=== PATIENT | female | born 1960 | race African-American/Black ===

== ENCOUNTER 2022-11-29 15:06 | Emergency (ER) | payer BC, MEDICARE, MEDICAID ==
[~2022-11-29] VITALS: Ht 162.6 cm; Wt 65.0 kg
[2022-11-29 15:14] VITALS: TEMP 98.2; O2SAT 98
[2022-11-29] MEDS ORDERED: IBUPROFEN 600MG TABLET PO ONE (15:30)
[2022-11-29] MEDS ORDERED: MELO-105 MT (16:40)
[2022-11-29] MEDS: IBUPROFEN 600MG TABLET PO NR ×2 (17:15→17:43)
[2022-11-29 17:43] VITALS: BP 135/88; PULSE 96; RESP 18
== END 2022-11-29 17:44 | disposition home or self-care (01) ==
LOC: ER 15:06
DX: M17.11 Unilateral primary osteoarthritis, right knee (principal); E11.9 Type 2 diabetes mellitus without complications
CPT/HCPCS: 73560; 73600; 99284; Z7610

== ENCOUNTER 2024-09-03 23:06 | Emergency (ER) | payer BC, MEDICAID ==
[~2024-09-03] VITALS: Ht 154.9 cm; Wt 64.0 kg
[~2024-09-03 23:06] MED LIST: MELO-105 MT
[2024-09-03 23:12] VITALS: TEMP 36.5; O2SAT 99
[2024-09-04 00:26] LABS: CARBON DIOXIDE 23 mEq/L (21-32); CHLORIDE 97 mEq/L (98-107); SODIUM 130 mEq/L (136-145)
[2024-09-04 00:28] LABS: CALCIUM 9.5 mg/dL (8.7-10.4); PROTHROMBIN TIME 10.6 sec (9.6-11.0)
[2024-09-04 00:29] LABS: BASOPHILS % 0.7 % (0.0-2.0); EOSINOPHILS % 2.2 % (0.0-5.0); HEMATOCRIT. 37.9 % (36.0-48.0); HEMOGLOBIN. 12.8 g/dL (12.0-16.0); LYMPHOCYTES % 55.5 % (20.0-50.0); MEAN CORPUSCULAR HEMOGLOBIN 30.9 pg (28.0-32.0); MEAN CORPUSCULAR HGB CONC 33.9 g/dL (31.0-37.0); MEAN CORPUSCULAR VOLUME 91.2 fL (81.0-99.0); MEAN PLATELET VOLUME 9.1 fl (7.4-10.4); NEUTROPHILS % 33.6 % (40.0-76.0); PLATELET 211 x1000/uL (130-400); RED BLOOD CELL COUNT 4.15 mill/uL (4.2-5.4); RED CELL DISTRIBUTION WIDTH 13.8 % (11.6-14.6); WHITE BLOOD COUNT 6.8 x1000/uL (4.5-11.0)
[2024-09-04 00:31] LABS: CREATININE 1.4 mg/dL (0.6-1.0); GLUCOSE 88 mg/dL (70-105)
[2024-09-04 00:32] LABS: UREA NITROGEN BLOOD 19 mg/dL (9-23)
[2024-09-04 00:33] LABS: ALANINE AMINOTRANSFERASE 15 IU/L (10-49); ALBUMIN 4.5 g/dL (3.2-4.8); ASPARTATE AMINOTRANSFERASE 15 IU/L (<34)
[2024-09-04 00:34] LABS: BILIRUBIN DIRECT < 0.1 mg/dL (<=3.0); BILIRUBIN TOTAL 0.3 mg/dL (0.1-1.0); PROTEIN TOTAL 7.4 g/dL (6.0-8.3)
[2024-09-04 00:42] LABS: TROPONIN I HIGH SENSITIVITY < 4 ng/L (3.0-34)
[2024-09-04] MEDS: SODIUM CHLORIDE 0.9% 1,000 ML IV ONE (02:47)
[2024-09-04 03:53] LABS: CLARITY URINE CLEAR (CLEAR); COLOR URINE YELLOW (YELLOW); GLUCOSE URINE NEGATIVE (NEGATIVE); KETONES URINE NEGATIVE (NEGATIVE); LEUKOCYTE ESTERASE URINE TRACE (NEGATIVE); NITRITE URINE NEGATIVE (NEGATIVE); OCCULT BLOOD URINE NEGATIVE (NEGATIVE); PH URINE 6.5 (4.5-8.0); PROTEIN URINE NEGATIVE (NEGATIVE); SPECIFIC GRAVITY URINE 1.005 (1.005-1.030); UROBILINOGEN URINE 0.2 E.U./dL (0.2-1.0)
[2024-09-04 04:26] LABS: BACTERIA URINE NONE SEEN; RBC URINE NONE SEEN /hpf (0-2); SQUAMOUS EPITHELIAL CELL URINE FEW /lpf (RARE/1+); WBC URINE 0-2 /hpf (0-2)
[2024-09-04 04:54] VITALS: BP 131/78; PULSE 75; RESP 22; O2SAT 98
== END 2024-09-04 05:01 | disposition home or self-care (01) ==
LOC: ER 23:06
DX: N17.9 Acute kidney failure, unspecified (principal); E11.22 Type 2 diabetes mellitus with diabetic chronic kidney disease; I12.9 Hypertensive chronic kidney disease with stage 1 through stage 4 chronic kidney disease, or unspecified chronic kidney disease; N18.30 Chronic kidney disease, stage 3 unspecified
CPT/HCPCS: 99285; 76700; 71045; 36415; 96360; 80076; 80048; 81003; 83690; 85025; 85610; 84484; 93005; J7030